=== PATIENT | female | born 1935 | race Caucasian/White ===

== ENCOUNTER 2021-11-15 17:20 | Emergency (ER) | payer MEDICARE, SELFPAY ==
--- NOTE | ~2021-11-15 | CT_ITS ---
EXAMINATION: CT HEAD WITHOUT CONTRAST CLINICAL INFORMATION: Mental status change COMPARISON: None pertinent TECHNIQUE: Contiguous axial imaging was performed from the skull base to vertex without intravenous administration of contrast. This CT examination was performed using dose optimization techniques as appropriate, variously including the following: *Automated exposure control *Adjustment of mA and/or kV according to patient size (this includes techniques or standardized protocols for targeted exams where dose is matched to indication/reason for exam; i.e. extremities or head) *Use of iterative reconstruction technique DLP: 771 mGy-cm FINDINGS: There is no evidence of acute intracranial hemorrhage or evolving territorial infarction. Vila to white matter differentiation is well maintained. There is no evidence of mass effect or midline shift. No extra-axial fluid collection is demonstrated. There is diffuse cerebral and cerebellar volume loss. There is proportional prominence of the ventricles, without evidence of hydrocephalus. Patchy periventricular and subcortical white matter low-attenuation compatible with chronic microvascular ischemic changes. There are no acute soft tissue or osseous findings. Status post right lens extraction. The mastoid air cells and paranasal sinuses are clear. CT/CT head/brain wo con IMPRESSION: No acute intracranial pathology.
--- NOTE | ~2021-11-15 | CT_ITS ---
EXAMINATION: CT ABDOMEN AND PELVIS WITHOUT CONTRAST CLINICAL INFORMATION: Abdominal pain and vomiting COMPARISON: None TECHNIQUE: Multidetector volumetric imaging was performed from the superior aspect of the liver through the pubic symphysis. Sagittal and coronal reformatted images were obtained on the technologist's workstation. This CT examination was performed using dose optimization techniques as appropriate, variously including the following: *Automated exposure control *Adjustment of mA and/or kV according to patient size (this includes techniques or standardized protocols for targeted exams where dose is matched to indication/reason for exam; i.e. extremities or head) *Use of iterative reconstruction technique DLP: 679 mGy-cm FINDINGS: LUNG BASES: The visualized lung bases are unremarkable. LIVER, GALLBLADDER, AND BILIARY TREE: The liver is normal in size, shape, and attenuation. No focal hepatic lesion or biliary ductal dilatation is present. Status post cholecystectomy PANCREAS: Unremarkable. SPLEEN: Unremarkable. ADRENAL GLANDS: Unremarkable. KIDNEYS AND URETERS: Left: On the left, there is mild hydronephrosis present with a dilated left pelvis and dilatation of the left ureter down to the level of obstructing stone in the pelvic ureter, about 10 cm above the left UVJ.. The stone measures 2 x 3 mm in size 9 Hounsfield units of 214. There is a single 2.5 mm intrarenal nonobstructing calculus present on the left. No left-sided renal masses are seen. Right: The right kidney appears normal aside from the presence of a nonobstructing 2 mm lower pole calculus. BLADDER: Unremarkable. GASTROINTESTINAL TRACT: A large hiatal hernia is present that is filled with fluid/solid material and exclusion of a mass would be difficult. The stomach appears unremarkable. The small and large bowel are unremarkable. The appendix is unremarkable. ABDOMINAL WALL: There is a right direct inguinal hernia containing a small knuckle of unobstructed small bowel. A small amount of fluid is present in the inguinal canal below this level. LYMPH NODES: No retroperitoneal lymphadenopathy. VASCULAR: Calcific atherosclerotic plaquing present in the aorta and iliofemoral vessels as well as the branch vessels. PELVIC VISCERA: An anteverted uterus is present. Some calcifications are seen that may be related to burnt out fibroids. An abnormal adnexal mass or free intraperitoneal fluid is not detected. OSSEOUS STRUCTURES: Generalized osteopenia is seen and there is compression deformity with near vertebral plana of the L1 vertebral body. CT/CT abdomen pelvis wo con IMPRESSION: 1. There is an obstructing 2 x 3 mm left ureteral calculus present 10 cm above the ureterovesical junction. 2. Incidental note made of large hiatal hernia, small right direct inguinal hernia containing small bowel and compression fracture L1 vertebral body with near vertebra plana. Fleischner guidelines were followed.
--- NOTE | ~2021-11-15 | XR_ITS ---
EXAMINATION: XR CHEST CLINICAL INFORMATION: Mental status change with question of pneumonia COMPARISON: CT scan abdomen pelvis same day TECHNIQUE: Frontal view of the chest was obtained. FINDINGS: A large hiatal hernia is present. Heart size is normal and there is no evidence of CHF. No infiltrates, effusions or lung masses are seen. Some chronic reticular nodular markings are present. XR/XR chest 1V IMPRESSION: No acute intrathoracic disease.
[2021-11-15 17:34] VITALS: BP 167/70; BP 200/100; PULSE 85; RESP 16; TEMP 36.6; O2SAT 97; BMI 29.2
--- NOTE | 2021-11-15 17:43 | ECG_ITS ---
Test Reason : WEAKNESS Blood Pressure : / mmHG Vent. Rate : 084 BPM Atrial Rate : 084 BPM P-R Int : 172 ms QRS Dur : 118 ms QT Int : 440 ms P-R-T Axes : 046 015 169 degrees QTc Int : 519 ms Artifact in tracing Sinus rhythm with Premature atrial complexes Cannot rule out Anterior infarct , age undetermined ST & T wave abnormality, consider lateral ischemia Abnormal ECG No previous ECGs available Referred By: Jen El Electronically Signed By:EUGENE YEAGER
--- NOTE | 2021-11-15 17:47 | ED.GENADULT ---
HPI - General Adult General Chief complaint: Weakness Stated complaint: uti/syncope Time Seen by Provider: 11/15/21 17:27 Source: patient, family (Granddaughter) and EMS Mode of arrival: EMS Limitations: altered mental status History of Present Illness HPI narrative: 86 years old female brought in by ambulance for evaluation of change mental status, vomiting, overall not acting herself. 86-year-old brought in by ambulance for evaluation of periods of incoherent and confusion, patient was diagnosed with UTI, is on Keflex day3. Patient is not a perfect historian with some mild confusion, complaining of mild intermittent frontal headache, that is not there now, no blurry vision, no chest pain, no shortness of breath, complaining of upper abdominal pain only with vomiting, patient vomited x3 of bile vomitus, otherwise no abdominal pain in between the vomiting episodes, declined any diarrhea. Family reported few 2nd of syncopal episode while she was sitting, patient called the family that she felt lightheadedness and going to pass out before then family witnessed patient passed out for few seconds then regained her consciousness. No sick contacts, no recent fever, no recent travel, patient received COVID vaccination x3. As per family patient is stressed her was just enrolled into hospice program. Related Data Home Medications Medication Instructions Recorded Confirmed brimonidine 0.2 % eye drops 1 drp BID 11/15/21 11/15/21 cephalexin 500 mg capsule 1 cap PO BID 11/15/21 11/15/21 latanoprost 0.005 % eye drops 1 drp OPHTHALMIC (EYE) DAILY 11/15/21 11/15/21 levothyroxine 88 mcg tablet 1 tab PO DAILY 11/15/21 11/15/21 omeprazole 20 mg capsule,delayed 20 mg PO DAILY 11/15/21 11/15/21 release timolol maleate 0.5 % eye drops 1 drp OPHTHALMIC (EYE) BID 11/15/21 11/15/21 vit D3-folic [id number] 1 tab PO DAILY 11/15/21 11/15/21 Previous Rx's Medication Instructions Recorded nitrofurantoin 100 mg PO BID #14 cap 11/15/21 monohydrate/macrocrystals 100 mg capsule (Macrobid) oxycodone 5 mg tablet 5 mg PO Q8H PRN #10 tab 11/15/21 Allergies Allergy/AdvReac Type Severity Reaction Status Date / Time No Known Allergies Allergy Verified 11/15/21 17:37 Review of Systems Review of Systems: All other systems are reviewed and are negative Constitutional: Reports as per HPI and Reports no additional constitutional complaints Eyes: Reports as per HPI and Reports no additional eye complaints Reports system reviewed and no additional complaints, except as documented Cardiovascular: Reports as per HPI and Reports no additional cardiovascular complaints Respiratory: Reports as per HPI and Reports no additional respiratory complaints Gastrointestinal: Reports as per HPI and Reports no additional gastrointestinal complaints Genitourinary: Reports no additional female genitourinary complaints Musculoskeletal: Reports no additional musculoskeletal complaints Skin/Breast: Reports system reviewed and no additional complaints, except as docu Psychiatric: Reports no additional psychiatric complaints Endocrine: Reports no additional endocrine complaints Hematologic/Lymphatic: Reports no additional hematologic/lymphatic complaints Allergic/Immunologic: Reports no additional allergic/immunologic complaints Reports system reviewed and no additional complaints, except as documented and Reports Abnormal speech present [facility] Social History Social History Advance Directives: Yes Advance Directives Information Provided: No Advance Directives on File: No Physical Exam Vital Signs: Vital Signs: Last Vital Signs Temp 98.4 F 11/15/21 19:51 Pulse 89 11/15/21 21:58 Resp 19 11/15/21 21:58 BP 157/68 H 11/15/21 21:58 Pulse Ox 94 11/15/21 19:43 BMI result Body Mass Index 29.2 Vital signs have been reviewed as appeared to be correct. Blood pressure normal. Heart rate normal. Respiration rate normal. Temperature normal. Oxygen saturation normal. Appearance: Alert. Oriented X3. No acute distress. Head: Normal external exam. Normocephalic. Atraumatic. No Singh signs noted. No raccoon eyes noted Eyes: PERRLA. EOMI. Conjunctiva and sclera normal. Eyelids normal. ENT: TM's Normal. Pharynx normal. Uvula midline. Moist mucous membranes. No trismus noted. No drooling noted. No muffled voice noted. Neck: Normal inspection. Neck supple. FROM. No adenopathy. Thyroid Normal. No meningeal signs. No neck mass noted. CVS: Normal heart rate and rhythm. Heart sound normal. No murmurs noted. Pulses normal throughout. Respiratory: No respiratory distress. Painless inspiration. Breath sounds normal. No wheezes/rales/rhonchi noted. Chest nontender. No accessory muscle usage noted or decreased air movement noted. Abdomen: Soft and nontender. Bowel sounds normal in all 4 quadrants. No distention noted. No organomegaly noted. No visible injury noted. Back: No CVA tenderness. Full range of motion noted. Skin: Skin warm and dry. Normal skin color. Normal skin turgor. No rashes/lesions/lacerations noted. Extremities: No lower extremity edema. Extremities exhibit normal range of motion. Extremities nontender. Neuro: Oriented X 3. Cranial nerve exam: II-XII are grossly intact No motor deficit. No sensory deficit. Reflexes normal. Course Course Course Narrative: Assessment and plan. 86-year-old female came in with persistent vomiting for 1 day, patient found to have small 2 mm stone in the left ureter with very mild hydro nephrosis and hydroureter, patient recently finished course of Keflex with remanent of a mild UTI will start the patient on Macrobid, case discussed with from Urology, stone is small should pass on its own and shouldn't be a problem, start the patient on Macrobid for a week and follow up as an outpatient with Dr. Muñoz. The plan discussed with the granddaughter who also a nurse and agreed on the plan. Reevaluation(s) Reevaluation #1: At discharge patient is slightly nauseous but no vomiting, able to tolerate fluid intake, has a low-grade fever of 100 responded well to Tylenol, spoke with the family a gain plan will remain the same to discharge the patient home and follow up with Dr. Muñoz as an outpatient, educated to return if worsening of symptoms. Time: 23:04 Medical Decision Making Lab Data Lab results reviewed: Yes I reviewed the patient's lab results. Result diagrams: 11/15/21 19:29 11/15/21 19:29 Labs: Lab Results 11/15/21 11/15/21 11/15/21 Range/Units 18:28 19:29 19:29 WBC 11.2 H (4.8-10.8) X10*3/uL RBC 3.61 L (4.20-5.50) X10*6/uL Hgb 11.2 L (12.0-16.0) g/dl Hct 35.2 L (37.0-47.0) % MCV 97.5 (80.0-98.0) fL MCH 31.0 (27.0-33.0) pg MCHC 31.8 (31.0-35.0) g/dl RDW 13.5 (11.0-16.0) % Plt Count 454 H (160-400) X10*3/uL MPV 9.8 (9.4-12.3) fL Immature Gran % (Auto) 0.4 (0.0-0.4) % Neut % (Auto) 78.6 H (45-73) % Lymph % (Auto) 12.8 L (20-40) % Thayer % (Auto) 6.3 (2-11) % Eos % (Auto) 1.4 (0-4) % Baso % (Auto) 0.5 (0-2) % Lymph # (Auto) 1.4 (1.2-4.9) X10*3/uL Thayer # (Auto) 0.7 (0.1-1.2) X10*3/uL Eos # (Auto) 0.2 (0.0-0.4) X10*3/uL Baso # (Auto) 0.1 (0.0-0.2) X10*3/uL Abs Immat Gran (auto) 0.05 H (0.00-0.03) X10*3/uL Absolute Neuts (auto) 8.8 H (2.0-8.3) x10*3/uL Absolute Nucleated RBC 0.000 (0.0-0.012) X10*3/uL Nucleated RBC % (auto) 0.0 (0.0-0.2) /100WBC Sodium 143 (135-145) mmol/L Potassium 3.9 (3.3-5.1) mmol/L Chloride 107 (96-108) mmol/L Carbon Dioxide 28 (22-29) mmol/L Anion Gap 12 (12-20) BUN 23 H (9-16) mg/dL Creatinine 0.71 (0.5-1.4) mg/dL Estim Creat Clear Calc 48.9 Estimated GFR > 60 Random Glucose 150 H (60-115) mg/dL Lactic Acid (0.5-2.0) mmol/L Calcium 9.1 (8.4-10.2) mg/dL Total Bilirubin 0.2 (0.0-1.0) mg/dL Direct Bilirubin 0.2 (0.0-0.5) mg/dL AST 16 (5-31) U/L ALT 24 (0-31) U/L Alkaline Phosphatase 54 (39-117) U/L Troponin I High Sens (<3.5-17.0) ng/L B-Natriuretic Peptide (<100) pg/mL Total Protein 6.9 (6.5-8.0) g/dL Albumin 3.4 L (3.5-5.0) g/dL Lipase 14 (8-78) U/L Urine Color YELLOW Urine Appearance CLEAR Urine pH 6.0 (5.0-8.0) Ur Specific [place] 1.015 (1.005-1.025) Urine Protein TRACE (NEG-TRACE) MG/DL Urine Glucose (UA) NEG (NEG) MG/DL Urine Ketones NEG (NEG) MG/DL Urine Blood TRACE (NEG) Urine Nitrite NEG (NEG) Ur Leukocyte Esterase 1+ H (NEG) Urine RBC 5-9 H (0) /HPF Urine WBC 5-9 H (0-4) /HPF Ur Squamous Epith Cells TRACE /LPF Urine Bacteria TRACE /LPF Influenza Type A (PCR) (Negative) Influenza Type B (PCR) (Negative) RSV RNA Qual (PCR) (Negative) SARS-CoV-2 RNA (RT-PCR) (Negative) 11/15/21 11/15/21 11/15/21 Range/Units 19:29 19:29 19:29 WBC (4.8-10.8) X10*3/uL RBC (4.20-5.50) X10*6/uL Hgb (12.0-16.0) g/dl Hct (37.0-47.0) % MCV (80.0-98.0) fL MCH (27.0-33.0) pg MCHC (31.0-35.0) g/dl RDW (11.0-16.0) % Plt Count (160-400) X10*3/uL MPV (9.4-12.3) fL Immature Gran % (Auto) (0.0-0.4) % Neut % (Auto) (45-73) % Lymph % (Auto) (20-40) % Thayer % (Auto) (2-11) % Eos % (Auto) (0-4) % Baso % (Auto) (0-2) % Lymph # (Auto) (1.2-4.9) X10*3/uL Thayer # (Auto) (0.1-1.2) X10*3/uL Eos # (Auto) (0.0-0.4) X10*3/uL Baso # (Auto) (0.0-0.2) X10*3/uL Abs Immat Gran (auto) (0.00-0.03) X10*3/uL Absolute Neuts (auto) (2.0-8.3) x10*3/uL Absolute Nucleated RBC (0.0-0.012) X10*3/uL Nucleated RBC % (auto) (0.0-0.2) /100WBC Sodium (135-145) mmol/L Potassium (3.3-5.1) mmol/L Chloride (96-108) mmol/L Carbon Dioxide (22-29) mmol/L Anion Gap (12-20) BUN (9-16) mg/dL Creatinine (0.5-1.4) mg/dL Estim Creat Clear Calc Estimated GFR Random Glucose (60-115) mg/dL Lactic Acid 1.1 (0.5-2.0) mmol/L Calcium (8.4-10.2) mg/dL Total Bilirubin (0.0-1.0) mg/dL Direct Bilirubin (0.0-0.5) mg/dL AST (5-31) U/L ALT (0-31) U/L Alkaline Phosphatase (39-117) U/L Troponin I High Sens 8.8 (<3.5-17.0) ng/L B-Natriuretic Peptide 240 H (<100) pg/mL Total Protein (6.5-8.0) g/dL Albumin (3.5-5.0) g/dL Lipase (8-78) U/L Urine Color Urine Appearance Urine pH (5.0-8.0) Ur Specific [place] (1.005-1.025) Urine Protein (NEG-TRACE) MG/DL Urine Glucose (UA) (NEG) MG/DL Urine Ketones (NEG) MG/DL Urine Blood (NEG) Urine Nitrite (NEG) Ur Leukocyte Esterase (NEG) Urine RBC (0) /HPF Urine WBC (0-4) /HPF Ur Squamous Epith Cells /LPF Urine Bacteria /LPF Influenza Type A (PCR) NEGATIVE (Negative) Influenza Type B (PCR) NEGATIVE (Negative) RSV RNA Qual (PCR) NEGATIVE (Negative) SARS-CoV-2 RNA (RT-PCR) NEGATIVE (Negative) Imaging Data Chest x-ray: Attestation: I personally reviewed and interpreted this imaging study as follows: Radiologist's impression: No acute intrathoracic disease. CT scan - abdomen: Attestation: I personally reviewed and interpreted this imaging study as follows: Radiologist's impression: 1.? There is an obstructing 2 x 3 mm left ureteral calculus present 10 cm above the ureterovesical junction. 2.? Incidental note made of large hiatal hernia, small right direct inguinal hernia containing small bowel and compression fracture L1 vertebral body with near vertebra plana.? ? CT scan - head: Attestation: I personally reviewed and interpreted this imaging study as follows: Radiologist's impression: No acute intracranial pathology. Discharge Plan Discharge Clinical Impression: Kidney stone, Acute UTI Patient Disposition: Home, Self-Care Instructions: Kidney Stones (ED) Additional Instructions: Return to the emergency department if fever, nausea, or vomiting. Takes a new antibiotic and drink fluid to help clear the urine tract infection and passing the stone. Use the pain medication as prescribed, use caution as it may cause dizziness and falling. Prescriptions: New nitrofurantoin monohyd/m-cryst [Macrobid] 100 mg capsule 100 mg PO BID Qty: 14 RF: 0 oxycodone 5 mg tablet 5 mg PO Q8H PRN (Reason: pain) Qty: 10 RF: 0 No Action latanoprost 0.005 % drops 1 drp ophthalmic (eye) DAILY RF: 0 levothyroxine 88 mcg tablet 1 tab PO DAILY RF: 0 cephalexin 500 mg capsule 1 cap PO BID RF: 0 brimonidine 0.2 % drops 1 drp BID RF: 0 omeprazole 20 mg Capsule,Delayed Release(Dr/Ec) 20 mg PO DAILY RF: 0 timolol maleate 0.5 % drops 1 drp ophthalmic (eye) BID RF: 0 vit D3-folic [id number] 1 tab PO DAILY RF: 0 Referrals: Jose Muñoz MD [Physician] - 1 week
[2021-11-15] MEDS: ondansetron HCL 4 MG/2 ML VIAL IVPUSH ×2 (18:23→23:21)
[2021-11-15] MEDS: 0.9 % Sodium Chloride 1,000 ML 999 ML IVCONT (18:23)
[2021-11-15 18:59] LABS: Appearance Urine CLEAR; Color Urine YELLOW; Glucose Urine UA NEG (NEG); Leukocyte Esterase Urine 1+ (NEG); Nitrite Urine NEG (NEG); Specific Gravity - Urine 1.015 (1.005-1.025); UACC Culture Trigger YES; Urine Blood TRACE (NEG); Urine Ketones NEG (NEG); Urine Protein TRACE MG/DL (NEG-TRACE)
[2021-11-15 19:30] LABS: Squamous Epithelial Cell Urine TRACE /LPF
[2021-11-15 19:31] LABS: Bacteria Urine TRACE /LPF
[2021-11-15 19:35] LABS: MANUAL DIFF FLAG NO
[2021-11-15 19:36] LABS: Basophils Absolute Auto 0.1 X10*3/uL (0.0-0.2); Basophils Percent Auto 0.5 % (0-2); Eosinophils Absolute Auto 0.2 X10*3/uL (0.0-0.4); Eosinophils Percent Auto 1.4 % (0-4); Hematocrit 35.2 % (37.0-47.0); Hemoglobin 11.2 g/dl (12.0-16.0); Imm Gran Abs Auto 0.05 X10*3/uL (0.00-0.03); Imm Gran Pct Auto 0.4 % (0.0-0.4); Lymphocytes Absolute Auto 1.4 X10*3/uL (1.2-4.9); Lymphocytes Percent Auto 12.8 % (20-40); Mean Corpuscular HGB Conc 31.8 g/dl (31.0-35.0); Mean Corpuscular Volume 97.5 fL (80.0-98.0); Mean Platelet Volume 9.8 fL (9.4-12.3); Monocytes Absolute Auto 0.7 X10*3/uL (0.1-1.2); Monocytes Percent Auto 6.3 % (2-11); Neutrophils Absolute Auto 8.8 x10*3/uL (2.0-8.3); Neutrophils Percent Auto 78.6 % (45-73); Platelet Count 454 X10*3/uL (160-400); Red Blood Count 3.61 X10*6/uL (4.20-5.50); Red Cell Distribution Width 13.5 % (11.0-16.0); White Blood Count 11.2 X10*3/uL (4.8-10.8)
[2021-11-15 19:43] VITALS: PULSE 87; RESP 15; O2SAT 94
[2021-11-15 19:46] LABS: Lactic Acid 1.1 mmol/L (0.5-2.0)
[2021-11-15 19:51] VITALS: BP 162/58; TEMP 36.9
[2021-11-15 19:52] LABS: Alanine Aminotransferase 24 U/L (0-31); Albumin Level 3.4 g/dL (3.5-5.0); Alkaline Phosphatase 54 U/L (39-117); Anion Gap 12 (12-20); Aspartate Amino Transferase 16 U/L (5-31); Bilirubin Direct 0.2 mg/dL (0.0-0.5); Bilirubin Total 0.2 mg/dL (0.0-1.0); Blood Urea Nitrogen 23 mg/dL (9-16); Calcium 9.1 mg/dL (8.4-10.2); Carbon Dioxide 28 mmol/L (22-29); Chloride 107 mmol/L (96-108); Creatinine Clr Calc Pharmacy 48.9; Estimated Glomerular Filt Rate > 60; Glucose Random 150 mg/dL (60-115); Lipase 14 U/L (8-78); Potassium 3.9 mmol/L (3.3-5.1); Sodium 143 mmol/L (135-145); Total Protein 6.9 g/dL (6.5-8.0)
[2021-11-15 19:55] LABS: B Type Natriuretic Peptide 240 pg/mL (<100); Troponin-I High Sensitivity 8.8 ng/L (<3.5-17.0)
[2021-11-15 20:18] LABS: Influenza A PCR NEGATIVE (Negative); Influenza B PCR NEGATIVE (Negative); Resp Syncy Virus RNA Qual PCR NEGATIVE (Negative); SARS COV2 PCR INHOUSE NEGATIVE (Negative)
[2021-11-15 21:58] VITALS: BP 157/68; PULSE 89; RESP 19
[2021-11-15] MEDS: cefTRIAXone sodium 1 GM in 0.9 % Sodium Chloride 50 ML IV (21:59)
[2021-11-15] MEDS: Morphine Sulfate 2 MG/ML CARTRIDGE 1 MG IVPUSH (21:59)
[2021-11-15] MEDS: Acetaminophen 325 MG TABLET 650 MG PO (23:21)
== END 2021-11-15 23:55 | disposition home or self-care (01) ==
PROVIDERS: Emergency Provider Emergency Medicine
DX: N13.2 Hydronephrosis with renal and ureteral calculous obstruction (principal); N39.0 Urinary tract infection, site not specified; Z79.899 Other long term (current) drug therapy; Z20.822 Contact with and (suspected) exposure to COVID-19
CPT/HCPCS: 0241U; 36415; 70450; 71045; 74176; 80048; 80076; 81001; 81003; 83605; 83690; 83880; 84484; 85025; 87040; 87086; 93005; 96361; 96365; 96375; 96376; 99284; J0696; J2270; J2405